=== PATIENT | male | born 1945 | race Caucasian/White ===

== ENCOUNTER 2017-03-14 16:37 | Emergency (ER) | payer MEDICARE, BC ==
[2017-03-14 17:19] VITALS: BP 163/96
--- NOTE | 2017-03-14 17:47 | EDM.PDOC ---
ED HPI GENERAL MEDICAL PROBLEM - General Chief Complaint: ENT Problem Stated Complaint: cold Time Seen by Provider: 03/14/17 17:05 Source of Information: Reports: Patient History Limitations: Reports: No Limitations - History of Present Illness INITIAL COMMENTS - FREE TEXT/NARRATIVE: 71-year-old male notes had a worsening cold over the past 3 days, intense nasal congestion, dry hacking cough and generalized muscle aches. He's having difficulty sleeping at night. He is concerned that it seems to be getting worse rather than getting better. He did receive an influenza vaccine. He also took his temperature today and was running a fever so decided to come in to get checked. No nausea or vomiting. Onset: Gradual (Over the past 4 days) Severity: Moderate Associated Symptoms: Reports: Cough, Fever/Chills, Headaches, Shortness of Breath. Denies: Nausea/Vomiting Headache Pain Score (Numeric/FACES): 5 Throat Pain Score (Numeric/FACES): 6 - Related Data Allergies Allergy/AdvReac Type Severity Reaction Status Date / Time No Known Allergies Allergy Verified 03/14/17 17:00 Home Meds: Home Meds Aspirin 325 mg PO BID 10/22/14 [History] Latanoprost [Latanoprost] 1 drop EYEBOTH DAILY 10/22/14 [History] Multivitamin [Multiple Vitamins] 1 tab PO DAILY 10/22/14 [History] Simvastatin [Zocor] 20 mg PO BEDTIME 10/22/14 [History] Timolol Maleate [Timoptic 0.5% Opth Soln] 1 drop TOP DAILY 03/14/17 [History] Past Medical History HEENT History: Reports: Glaucoma, Hard of Hearing, Impaired Vision Other HEENT History: wears glasses Cardiovascular History: Reports: High Cholesterol, Hypertension Oncologic (Cancer) History: Reports: Basal Cell Carcinoma, Prostate, Squamous Cell Carcinoma Dermatologic History: Reports: Other (See Below) Other Dermatologic History: skin cancers - Infectious Disease History Infectious Disease History: Reports: Chicken Pox, Measles, Mumps - Past Surgical History GI Surgical History: Reports: Colonoscopy Male Surgical History: Reports: Prostatectomy Other Male Surgeries/Procedures: prostectomy due to prostate Ca. Social & Family History - Family History Family Medical History: Noncontributory - Tobacco Use Smoking Status *Q: Former Smoker Years of Tobacco use: 8 Used Tobacco, but Quit: Yes Month Tobacco Last Used: 1975 Second Hand Smoke Exposure: No - Caffeine Use Caffeine Use: Reports: Coffee - Alcohol Use Days Per Week of Alcohol Use: 7 Number of Drinks Per Day: 1 Total Drinks Per Week: 7 - Recreational Drug Use Recreational Drug Use: No ED ROS GENERAL - Review of Systems Review Of Systems: See Below Constitutional: Reports: Fever, Chills, Malaise HEENT: Reports: Rhinitis, Sinus Problem (Sinus congestion and pressure) Respiratory: Reports: Shortness of Breath, Cough (Mild shortness of breath with coughing) Skin: Reports: No Symptoms Neurological: Reports: Headache (Intermittent mild headache) ED EXAM, GENERAL - Physical Exam Exam: See Below Exam Limited By: No Limitations General Appearance: Alert, No Apparent Distress Eye Exam: Bilateral Eye: Normal Inspection Ears: Normal TMs Throat/Mouth: Normal Inspection Neck: No: Lymphadenopathy (R), Lymphadenopathy (L) Respiratory/Chest: No Respiratory Distress, Lungs Clear Neurological: Alert, Oriented Psychiatric: Normal Affect, Normal Mood Skin Exam: Warm, Dry Course - Vital Signs Last Recorded V/S: Last Vital Signs Temp 97.5 F 03/14/17 16:57 Pulse 82 03/14/17 16:57 Resp 16 03/14/17 16:57 BP 163/96 H 03/14/17 17:18 Pulse Ox 97 03/14/17 17:18 - Re-Assessments/Exams Free Text/Narrative Re-Assessment/Exam: 03/14/17 17:47 Influenza antigens were obtained. 03/14/17 18:05 Influenza antigens were negative. Patient was given a course of Zithromax for sinusitis as well as 6 Vicodin to use for extra pain control, and encouraged to continue using saline flushes for his nose but also adding Afrin or Franco- Synephrine. He can recheck next week if not improving satisfactorily. Departure - Departure Time of Disposition: 18:11 Disposition: Home, Self-Care 01 Condition: Good Clinical Impression: Sinusitis chronic, ethmoidal, URI, acute - Discharge Information Instructions: Sinusitis, Adult, [id number] Referrals: Wang Duenas PA-C [Primary Care Provider] - Forms: ED Department Discharge Care Plan Goals: Take medication as prescribed. Continue with cold medications as needed and consider Afrin or Franco-Synephrine nasal spray to open nasal passages. Recheck in 3-4 days if not improving satisfactorily. Get plenty of rest and fluids.
== END 2017-03-14 18:12 | disposition home or self-care (01) ==
LOC: JP.ED 16:37
DX: J06.9 Acute upper respiratory infection, unspecified (principal); J32.2 Chronic ethmoidal sinusitis; I10 Essential (primary) hypertension; E78.00 Pure hypercholesterolemia, unspecified; Z87.891 Personal history of nicotine dependence; Z79.82 Long term (current) use of aspirin; Z79.899 Other long term (current) drug therapy
CPT/HCPCS: 87804; 99283; 99284

== ENCOUNTER 2022-03-23 06:46 | Day surgery (SDC) | payer MEDICARE ==
[2022-03-23] MEDS ORDERED: Dextrose 5%-Lactated Ringers 1,000 ML IV SCH (08:30)
[2022-03-23] MEDS ORDERED: Propofol 200 MG/20 ML SDV ONE (08:51)
[2022-03-23] MEDS ORDERED: Pantoprazole 40 MG Vial IVPUSH ONE (10:15)
[2022-03-23 10:42] VITALS: BP 155/88; PULSE 71
== END 2022-03-23 11:02 | disposition home or self-care (01) ==
LOC: JP.SDS 06:46
PROVIDERS: ATTEND Surgery
DX: K31.A0 Gastric intestinal metaplasia, unspecified (principal); K29.70 Gastritis, unspecified, without bleeding; K44.9 Diaphragmatic hernia without obstruction or gangrene; K21.9 Gastro-esophageal reflux disease without esophagitis; I10 Essential (primary) hypertension; E78.5 Hyperlipidemia, unspecified; C61 Malignant neoplasm of prostate; Z79.899 Other long term (current) drug therapy
CPT/HCPCS: 43239; 87081; 88305; C9113; J2704; J7121

== ENCOUNTER 2024-09-18 06:21 | Day surgery (SDC) | payer MEDICARE ==
[2024-09-18] MEDS: Lactated Ringers 1,000 ML IV SCH (06:57)
[2024-09-18] MEDS ORDERED: Propofol 200 MG/20 ML SDV ONE (07:11)
[2024-09-18] MEDS ORDERED: fentaNYL 100 MCG/2 ML SDV ONE (07:11)
[2024-09-18 08:34] VITALS: BP 138/79; PULSE 56
== END 2024-09-18 08:50 | disposition home or self-care (01) ==
LOC: JP.SDS 06:21
PROVIDERS: ATTEND Surgery
DX: K22.70 Barrett's esophagus without dysplasia (principal); K29.50 Unspecified chronic gastritis without bleeding; K44.9 Diaphragmatic hernia without obstruction or gangrene; R13.10 Dysphagia, unspecified; I10 Essential (primary) hypertension; I25.10 Atherosclerotic heart disease of native coronary artery without angina pectoris; Z87.891 Personal history of nicotine dependence
CPT/HCPCS: 00731; 43239; J2704; J3010; J7120